=== PATIENT | female | born 1990 | race Caucasian/White ===

== ENCOUNTER 2016-09-11 00:43 | Inpatient (IN) | payer MEDICAID ==
[2016-09-11] MEDS ORDERED: LACTATED RINGERS 1,000 ML IV ONE ×2 (01:16→02:12)
[2016-09-11] MEDS ORDERED: OXYTOCIN/NORMAL SALINE 500 ML IV ONE (01:16)
[2016-09-11] MEDS ORDERED: FENTANYL 100 MCG/2 ML VIAL ONE (01:19)
[2016-09-11 01:28] LABS: BASOPHIL# 0.1 X 10^3uL (0.0-0.1); BASOPHILS 0.6 % (0.0-2.0); EOSINOPHILS 1.5 % (0.0-6.0); EOSINOPHILS# 0.2 X 10^3uL (0.0-0.4); HEMOGLOBIN 12.2 g/dL (12.0-16.0); LYMPHOCYTES 18.3 % (20.0-40.0); LYMPHOCYTES# 2.3 X 10^3uL (0.8-3.8); MEAN CELL VOLUME 84.4 fL (80.0-100.0); MEAN CORPUS. HGB CONCENTRATION 34.8 g/dL (32.0-36.0); MEAN CORPUSCULAR HEMOGLOBIN 29.4 pg (29.0-35.0); MEAN PLATELET VOLUME 7.6 fL (7.4-10.4); MONOCYTES 8.7 % (2.0-10.0); MONOCYTES# 1.1 X 10^3uL (0.2-1.0); NEUTROPHILS 70.9 % (54.0-75.0); NEUTROPHILS# 8.9 X 10^3uL (2.6-6.7); RED BLOOD COUNT 4.15 X 10^6uL (4.20-6.10); RED CELL DISTRIBUTION WIDTH 12.2 % (11.5-14.5); WHITE BLOOD COUNT 12.6 X 10^3uL (3.9-10.7)
[2016-09-11] MEDS ORDERED: LIDOCAINE HCL/PF 1% 30 ML VIAL SUBCUT PRN (01:30)
[2016-09-11] MEDS ORDERED: LACTATED RINGERS 1,000 ML IV SCH (01:30)
[2016-09-11] MEDS ORDERED: ONDANSETRON HCL 4 MG/2 ML VIAL IV PRN (01:30)
[2016-09-11] MEDS ORDERED: FENTANYL 100 MCG/2 ML VIAL IV ONE (01:30)
[2016-09-11] MEDS ORDERED: HOME MEDICATION LIST NEEDED 1 EA EACH MISC ONE ×2 (01:30→05:53)
[2016-09-11] MEDS ORDERED: FENTANYL 100 MCG/2 ML VIAL IV PRN (01:30)
[2016-09-11] MEDS ORDERED: MISOPROSTOL 200 MCG TABLET PO PRN ×4 (01:30→05:53)
[2016-09-11] MEDS ORDERED: OXYTOCIN/NORMAL SALINE 30 UNIT/500 ML BAG IV SCH ×2 (01:30→05:53)
[2016-09-11] MEDS ORDERED: ROPIVACAINE HCL IN 0.9%NACL/PF 120 MG/60 ML SYRINGE ONE (02:12)
[2016-09-11 02:39] LABS: ABO GROUP TYPE A; RH TYPE POSITIVE
[2016-09-11 02:40] LABS: ANTIBODY SCREEN NEGATIVE
[2016-09-11] MEDS ORDERED: ROPIVACAINE HCL 0.2% 100 ML ONE (02:53)
--- NOTE | 2016-09-11 03:08 | PROGRESS NOTE:Antepartum ---
Assessment and Plan - Date of Encounter Date of Encounter: 09/11/16 (1) Short interval between pregnancies affecting in third trimester, antepartum Status: Acute Assessment and plan: Now in labor at term. Epidural in place and patient comfortable. Admit for routine labor care and delivery. 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 GBS negative. Patient reports: pain well controlled (epidural in place) Antepartum ROS: contractions, movement normal, no vaginal bleeding, no loss of fluid, no headache, no shortness of breath, no swelling, no visual changes RADIO EQUIPMENT REPAIRER: Antepartum PN Obj Exam - Latest Vital Signs and I&O Latest Vital Signs/I&O: Intake & Output 09/10/16 09/10/16 09/11/16 05:59 17:59 05:59 Weight 78.925 kg - Exam Heart Monitor: category I Heart Rhythm: Present: regular Extremities: Absent: tenderness Abdomen: Present: soft Cervical Dilatation Degree: 7 Cervical Effacement Percentage: 100 Station: -1 Additional Comments: AROM clear - Lab Labs: Laboratory Last Values WBC 12.6 X 10^3uL (3.9-10.7) H 09/11/16 01:10 RBC 4.15 X 10^6uL (4.20-6.10) L 09/11/16 01:10 Hgb 12.2 g/dL (12.0-16.0) 09/11/16 01:10 Hct 35.0 % (36.0-48.0) L 09/11/16 01:10 MCV 84.4 fL (80.0-100.0) 09/11/16 01:10 MCH 29.4 pg (29.0-35.0) 09/11/16 01:10 MCHC 34.8 g/dL (32.0-36.0) 09/11/16 01:10 RDW 12.2 % (11.5-14.5) 09/11/16 01:10 Plt Count 353 X 10^3uL (130-440) 09/11/16 01:10 MPV 7.6 fL (7.4-10.4) 09/11/16 01:10 Neutrophils % 70.9 % (54.0-75.0) 09/11/16 01:10 Lymphocytes % 18.3 % (20.0-40.0) L 09/11/16 01:10 Eosinophils % 1.5 % (0.0-6.0) 09/11/16 01:10 Basophils % 0.6 % (0.0-2.0) 09/11/16 01:10 Neutrophils # 8.9 X 10^3uL (2.6-6.7) H 09/11/16 01:10 Lymphocytes # 2.3 X 10^3uL (0.8-3.8) 09/11/16 01:10 Monocytes 8.7 % (2.0-10.0) 09/11/16 01:10 Monocytes # 1.1 X 10^3uL (0.2-1.0) H 09/11/16 01:10 Eosinophils # 0.2 X 10^3uL (0.0-0.4) 09/11/16 01:10 Basophils # 0.1 X 10^3uL (0.0-0.1) 09/11/16 01:10 ABO Group Type a 09/11/16 01:10 Rh Factor Positive 09/11/16 01:10 Antibody Screen Negative 09/11/16 01:10
--- NOTE | 2016-09-11 03:09 | PROCEDURE NOTE: Vaginal Del ---
OB Procedure Vaginal Delivery - Vaginal Delivery Estimated Gestational Age (weeks): 39 (3) Delivery Presentation: vertex Delivery Position: OA Heart Monitor: category I Intrapartum Events: none Delivery Augmentation: rupture of membranes Amniotic Fluid: clear Delivery Monitor: external FHT, external uterine Delivery Method: Shoulders: without difficulty Placenta delivered: yes Delivery Placenta: spontaneous Delivery Cord: 3 Vessels Nuchal Cord # of Loops: 0 Cord clamped: Yes (delayed) Cord blood obtained: Yes Episiotomy: none Delivery Laceration: perineal laceration, other (small posterior vaginal laceration, closed with single figure of 8 suture), 1st degree Suture Type for Laceration Repair: 3.0 Vicryl at 1 minute: 8 at 5 minutes: 9 Gender: Female Weight: 3.04 kg Estimate Blood Loss Delivery: 200cc Anesthesia: Epidural Patient tolerated procedure: well, no complications Delivery Complications: Present: none
[2016-09-11] MEDS ORDERED: BENZOCAINE/LANOLIN/ALOE 1 SPRAY BOTTLE TOPICAL PRN (05:53)
[2016-09-11] MEDS ORDERED: LANOLIN CREAM 1 APP/7 GM TUBE TOPICAL PRN (05:53)
[2016-09-11] MEDS ORDERED: DIPHENHYDRAMINE 25 MG CAPSULE PO PRN (05:53)
[2016-09-11] MEDS ORDERED: MAGNESIUM HYDROXIDE 30 ML UDC PO PRN (05:53)
[2016-09-11] MEDS: DOCUSATE SODIUM 100 MG CAPSULE PO SCH (07:35)
[2016-09-11] MEDS: IBUPROFEN 600 MG TABLET PO PRN ×3 (07:37→19:45)
[2016-09-11] MEDS ORDERED: WITCH HAZEL 1 EACH MED..PAD TOPICAL ONE (07:43)
[2016-09-11 10:34] VITALS: RESP 18
[2016-09-11] MEDS: ACETAMINOPHEN/CODEINE 300/30MG 1 TAB TABLET PO PRN ×4 (11:53→23:59)
[2016-09-12] MEDS: DOCUSATE SODIUM 100 MG CAPSULE PO SCH ×2 (03:10→08:04)
[2016-09-12] MEDS: IBUPROFEN 600 MG TABLET PO PRN ×2 (04:39→11:13)
[2016-09-12] MEDS: ACETAMINOPHEN/CODEINE 300/30MG 1 TAB TABLET PO PRN ×3 (04:39→11:15)
[2016-09-12 06:37] LABS: HEMATOCRIT 33.7 % (36.0-48.0); HEMOGLOBIN 11.5 g/dL (12.0-16.0)
[2016-09-12 08:33] VITALS: TEMP 97.9; O2SAT 94
[2016-09-12] MEDS ORDERED: NICOTINE 14 MG PATCH TRANSDERM SCH (09:00)
--- NOTE | 2016-09-12 10:26 | DC SUMMARY: Obstetrical/GYN ---
Discharge Summary: Surg/OB Provider: Date of Admission: 09/11/16 Admitting Provider: NORAH WINTER MD Attending Provider: NORAH WINTER MD Discharging Provider: NORAH WINTER MD Primary Care Provider: Discharge Date: 09/12/16 - Diagnosis (1) Short interval between pregnancies affecting in third trimester, antepartum Status: Acute Hospital Course: Ms. DESAI is a 25 year old female at 39 3/7 weeks who presented in active labor. She had an epidural catheter placed and amniotomy revealed clear fluid. She progressed well and had an uncomplicated vaginal . Her post- course was unremarkable and she is discharged to home on the first post- day. 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 Exam - Latest Vital Signs and I&O Latest Vital Signs/I&O: Vital Signs Temp 36.6 C 09/12/16 07:45 Pulse 102 H 09/12/16 07:45 Resp 18 09/12/16 07:45 BP 124/86 09/12/16 07:45 Pulse Ox 94 09/12/16 08:00 Intake & Output 09/11/16 09/12/16 09/12/16 17:59 05:59 17:59 Output Total 800 Balance -800 Output: Urine 800 Other: Urine Appearance Clear Clear Urine Color Francis Francis Voiding Method Toilet Toilet Toilet # Voids 1 - Exam Lungs: Bilateral: normal Heart Rhythm: Present: regular Extremities: Absent: tenderness Abdomen: Present: soft Uterus: Present: firm, non tender Discharge Summary Data - Medication History Medication History: Home Medications Acetaminophen [Tylenol] 325 - 650 mg PO TID PRN 09/11/16 Inpatient Medications 09/11/16 05:53 Acetaminophen/Codeine 300/30Mg [Tylenol with Codeine #3] 1 - 2 tab PO Q3H PRN Benzocaine/Lanolin/Aloe [Dermoplast [place]] 1 spray TOPICAL PRN PRN Diphenhydramine [Benadryl] 50 mg PO HS PRN Docusate Sodium [Colace] 100 mg PO Q12H Ibuprofen [Motrin] 600 mg PO Q6H PRN Lanolin Cream [Lansinoh] 1 domen[place] TOPICAL PRN PRN Magnesium Hydroxide [Milk of Magnesia] 30 ml PO PRN PRN Misoprostol [Cytotec] 600 mcg PO ONCE PRN Misoprostol [Cytotec] 800 mcg PO ONCE PRN Oxytocin/Normal Saline [Pitocin/Ns 30 Unit/500 ml] 30 unit IV CONT 09/12/16 09:00 Nicotine [Nicoderm Patch] 14 mg TRANSDERM DAILY Procedures and tests throughout hospitalization: Completed Lab Orders 09/11/16 01:10 ABO GROUP [HEM] Urgent ANTIBODY SCREEN [HEM] Urgent CBC AUTO DIF, MDIF/RMOR IF IND [HEM] Stat RH TYPE [HEM] Urgent 09/12/16 06:15 HGB & HCT PANEL [HEM] AMDRAW Pending Orders 08/27/16 13:29 Resuscitation Status Routine 09/11/16 01:30 Admit: Inpatient Routine VTE Prophylaxis Scoring/ Ordering Routine Activity: Ambulate [facility]ATED [facility] Maternal Vital Signs PER PROTOCOL 09/11/16 05:53 May shower TOLERATED Post Assessment PER PROTOCOL Vital Signs [id number],Q30MX2,Q1HX2,Q4H Acetaminophen/Codeine 300/30Mg [Tylenol with Codeine #3] 1 - 2 tab PO Q3H PRN Benzocaine/Lanolin/Aloe [Dermoplast [place]] 1 spray TOPICAL PRN PRN Diphenhydramine [Benadryl] 50 mg PO HS PRN Docusate Sodium [Colace] 100 mg PO Q12H Ibuprofen [Motrin] 600 mg PO Q6H PRN Lanolin Cream [Lansinoh] 1 domen[place] TOPICAL PRN PRN Magnesium Hydroxide [Milk of Magnesia] 30 ml PO PRN PRN Misoprostol [Cytotec] 600 mcg PO ONCE PRN Misoprostol [Cytotec] 800 mcg PO ONCE PRN Oxytocin/Normal Saline [Pitocin/Ns 30 Unit/500 ml] 30 unit IV CONT 09/11/16 Breakfast Regular [DIET] Special Meal (NLC) 09/11/16 Dinner Special Meal (NLC) 09/12/16 09:00 Nicotine [Nicoderm Patch] 14 mg TRANSDERM DAILY Labs on day of discharge: Labs from last 24 hours 09/12/16 06:15 Hgb 11.5 L Hct 33.7 L
[2016-09-12 13:36] VITALS: BP 128/82; PULSE 98
== END 2016-09-12 13:20 | disposition home or self-care (01) | DRG 775 ==
LOC: NLCPRO 00:43 → NLC 00:44
PROVIDERS: ADMIT Obstetrics & Gynecology; ATTEND Obstetrics & Gynecology
PROC: 10E0XZZ Delivery of Products of Conception, External Approach (ICD-10-PCS; principal; 2016-09-11)
PROC: 0HQ9XZZ Repair Perineum Skin, External Approach (ICD-10-PCS; principal; 2016-09-11)
DX: O70.0 First degree perineal laceration during delivery (principal); O09.893 Supervision of other high risk pregnancies, third trimester; Z37.0 Single live birth
CPT/HCPCS: 36415; 85014; 85018; 85025; 86850; 86900; 86901; J2795; J3010; J7120; S4990